=== PATIENT | female | born 1940 | race Caucasian/White ===

== ENCOUNTER 2020-09-27 07:41 | Emergency (ER) | payer OTHER, MEDICAID ==
[~2020-09-27] VITALS: Ht 154.9 cm; Wt 54.4 kg
[2020-09-27 08:15] VITALS: BP_SYST 139
--- NOTE | 2020-09-27 08:15 | NUR ---
Triaged in tent, report given to Dr. Robles and RN
--- NOTE | 2020-09-27 08:32 | NUR ---
ER Dr. Robles at bedside examining patient.
[2020-09-27 08:42] VITALS: BP_SYST 145
--- NOTE | 2020-09-27 08:44 | NUR ---
Pt in chair, in Tent 1. Alert and oriented. Denies pain. Abdomen soft. Son with patient.
--- NOTE | 2020-09-27 08:45 | NUR ---
Patient given written and verbal discharge instructions and verbalizes understanding. ER MD discussed with patient the results and treatment provided. Patient in stable condition. ID arm band removed. Rx of mineral oil enema and melinda oral given. Patient educated on pain management and to follow up with PMD. Pain Scale 0/10. Opportunity for questions provided and answered. Medication side effect fact sheet provided.
[2020-09-27] MEDS ORDERED: FLEETMO RC (08:48)
[2020-09-27] MEDS ORDERED: [UNRECOGNIZED DRUG - OTHER] GT (08:48)
== END 2020-09-27 08:42 | disposition home or self-care (01) ==
LOC: SED 07:41
DX: K59.00 Constipation, unspecified (principal)
CPT/HCPCS: 99283

== ENCOUNTER 2020-10-10 10:25 | Emergency (ER) | payer OTHER, MEDICAID ==
[~2020-10-10] VITALS: Ht 160 cm; Wt 52.2 kg
[~2020-10-10 10:25] MED LIST: FLEETMO RC; [UNRECOGNIZED DRUG - OTHER] GT
[2020-10-10 10:30] VITALS: BP_SYST 106
[2020-10-10] MEDS ORDERED: LORazepam 1 MG TABLET PO ONE (11:00)
[2020-10-10 12:09] VITALS: BP_SYST 106
== END 2020-10-10 12:09 | disposition home or self-care (01) ==
LOC: SED 10:25
DX: F41.9 Anxiety disorder, unspecified (principal); F32.9 Major depressive disorder, single episode, unspecified; K59.00 Constipation, unspecified; R63.0 Anorexia; Z90.710 Acquired absence of both cervix and uterus; Z79.899 Other long term (current) drug therapy; Z86.73 Personal history of transient ischemic attack (TIA), and cerebral infarction without residual deficits
CPT/HCPCS: 99283

== ENCOUNTER 2020-10-26 10:25 | Emergency (ER) | payer MEDICARE, MEDICAID ==
[~2020-10-26] VITALS: Ht 165.1 cm; Wt 47.6 kg
[2020-10-26 10:30] VITALS: BP_SYST 93
--- NOTE | 2020-10-26 10:30 | NUR ---
Patient to ER bed 5 to gown for evaluation. Side rails up.
--- NOTE | 2020-10-26 10:30 | NUR ---
Pt brought to ER by son for diarrhea beginning last night. Pt states she took Amitiza, a laxative, which is prescribed to her for constipation. Pt does not report pain at this time, some mild distress noted, MD david chris
--- NOTE | 2020-10-26 10:52 | NUR ---
ER at bedside examining patient.
--- NOTE | 2020-10-26 10:55 | NUR ---
# 20 gauge angiocath placed to RFA. Use of asceptic technique. Opsite placed over site. Blood return noted. Blood for lab drawn from site. Flushed with 10 cc of normal saline. No evidence of infiltration noted. Patient tolerated well.
[2020-10-26] MEDS ORDERED: NACL 0.9% 1,000 ML IV ONE (11:00)
[2020-10-26] MEDS ORDERED: ONDANSETRON HCL 4 MG/2 ML VIAL IVP ONE (11:00)
[2020-10-26] MEDS ORDERED: LOPERAMIDE HCL 2 MG CAPSULE PO ONE (11:00)
[2020-10-26 11:25] LABS: ANION GAP 9 (5-15); CHLORIDE 89 mmol/L (98-107); CREATININE 1.89 mg/dL (0.55-1.30); GLUCOSE 108 mg/dL (70-99); POTASSIUM 3.4 mmol/L (3.5-5.1); UREA NITROGEN, BLOOD 21 mg/dL (8-21)
[2020-10-26 11:28] LABS: SODIUM SERUM 126 mmol/L (136-145)
[2020-10-26 11:31] LABS: ALANINE AMINOTRANSFERASE 27 U/L (12-78); ALBUMIN 3.4 g/dL (3.4-4.8); ASPARTATE AMINOTRANSFERASE 24 U/L (10-37); LIPASE 226 U/L (73-393); TOTAL BILIRUBIN 0.7 mg/dL (0.0-1.0)
[2020-10-26 11:55] LABS: BASOPHILS # (AUTO) 0.1 K/uL (0.0-0.2); BASOPHILS % (AUTO) 0.7 % (0.0-2.0); EOSINOPHILS # (AUTO) 0.4 K/uL (0.0-0.4); EOSINOPHILS % (AUTO) 5.2 % (0.0-4.0); HEMATOCRIT 35.5 % (36-48); HEMOGLOBIN 12.1 g/dL (12.0-16.0); LYMPHOCYTES # (AUTO) 0.7 K/uL (1.0-5.5); LYMPHOCYTES % (AUTO) 8.8 % (20.5-51.5); MEAN CORPUSCULAR HEMOGLOBIN 30 pg (27-31); MEAN CORPUSCULAR HGB CONC 34 % (32-36); MEAN CORPUSCULAR VOLUME 87 fL (79.0-98.0); MONOCYTES # (AUTO) 0.6 K/uL (0.0-1.0); MONOCYTES % (AUTO) 7.7 % (1.7-9.3); NEUTROPHILS # (AUTO) 6.1 K/uL (1.8-7.7); NEUTROPHILS % (AUTO) 77.6 % (40.0-70.0); PLATELET COUNT (AUTO) 285 K/uL (130-430); RED BLOOD CELL COUNT(AUTO) 4.06 MIL/uL (4.2-6.2); RED CELL DISTRIBUTION WIDTH 13.9 % (9.0-15.0); WHITE BLOOD COUNT (AUTO) 7.9 K/uL (4.8-10.8)
[2020-10-26] MEDS ORDERED: LORazepam 1 MG TABLET ONE (12:24)
[2020-10-26] MEDS ORDERED: LORazepam 1 MG TABLET PO ONE (12:30)
[2020-10-26] MEDS ORDERED: LOPE2CAP PO (12:32)
[2020-10-26] MEDS ORDERED: ONDA4TAB5 PO (12:32)
--- NOTE | 2020-10-26 13:00 | NUR ---
Patient given written and verbal discharge instructions and verbalizes understanding. ER MD discussed with patient the results and treatment provided. Patient in stable condition. ID arm band removed. IV catheter removed intact and dressing applied, no active bleeding. Rx of Immodium and Zofran given. Patient educated on pain management and to follow up with PMD. Pain Scale 0. Opportunity for questions provided and answered. Medication side effect fact sheet provided.
[2020-10-26 13:03] VITALS: BP_SYST 93
== END 2020-10-26 13:02 | disposition home or self-care (01) ==
LOC: SED 10:25
DX: E87.1 Hypo-osmolality and hyponatremia (principal); R19.7 Diarrhea, unspecified; Z79.899 Other long term (current) drug therapy
CPT/HCPCS: 36415; 80053; 83690; 85025; 96361; 96374; 99283; J2405; J7030

== ENCOUNTER 2021-01-15 07:27 | Emergency (ER) | payer MEDICARE, MEDICAID ==
[~2021-01-15] VITALS: Ht 165.1 cm; Wt 45.4 kg
[2021-01-15 07:27] VITALS: BP_SYST 105
[~2021-01-15 07:27] MED LIST changes: +LOPE2CAP PO; +ONDA4TAB5 PO; +PEG4000S4 GT; -[UNRECOGNIZED DRUG - OTHER] GT
--- NOTE | 2021-01-15 07:27 | NUR ---
BROUGHT BACK TO BED #8 AND TRIAGED. REPORT GIVEN TO ASHLEY
--- NOTE | 2021-01-15 07:35 | NUR ---
pt. here with c/o constipation and belly pain. denies N/V. stated had not had a bm for a few days but was able to this morning but now belly pain worse.
--- NOTE | 2021-01-15 07:40 | NUR ---
JEROME Frances at bedside examining patient.
--- NOTE | 2021-01-15 07:50 | NUR ---
HR in 40s, per Dr. Lopez pt placed on pacer pads
--- NOTE | 2021-01-15 08:06 | NUR ---
radiology at bedside for chect xray
--- NOTE | 2021-01-15 08:07 | NUR ---
# 20 gauge angiocath placed to left AC and R FA. Use of asceptic technique. Opsite placed over site. Blood return noted. Blood for lab drawn from AC site. Flushed with 10 cc of normal saline. No evidence of infiltration noted. Patient tolerated well. Dr. Lopez requested 2 IV lines.
[2021-01-15 08:11] LABS: BASOPHILS % (AUTO) 0.4 % (0.0-2.0); EOSINOPHILS # (AUTO) 0.1 K/uL (0.0-0.4); EOSINOPHILS % (AUTO) 0.5 % (0.0-4.0); HEMATOCRIT 30.4 % (36-48); HEMOGLOBIN 10.1 g/dL (12.0-16.0); LYMPHOCYTES # (AUTO) 0.8 K/uL (1.0-5.5); LYMPHOCYTES % (AUTO) 6.7 % (20.5-51.5); MEAN CORPUSCULAR HEMOGLOBIN 31 pg (27-31); MEAN CORPUSCULAR HGB CONC 33 % (32-36); MEAN CORPUSCULAR VOLUME 94 fL (79.0-98.0); MONOCYTES # (AUTO) 0.9 K/uL (0.0-1.0); MONOCYTES % (AUTO) 8.1 % (1.7-9.3); NEUTROPHILS # (AUTO) 9.5 K/uL (1.8-7.7); NEUTROPHILS % (AUTO) 84.3 % (40.0-70.0); PLATELET COUNT (AUTO) 191 K/uL (130-430); RED BLOOD CELL COUNT(AUTO) 3.25 MIL/uL (4.2-6.2); RED CELL DISTRIBUTION WIDTH 14.9 % (9.0-15.0); WHITE BLOOD COUNT (AUTO) 11.3 K/uL (4.8-10.8)
--- NOTE | 2021-01-15 08:13 | NUR ---
Patient transported to radiology via gurney, accompanied by staff.
[2021-01-15 08:26] LABS: ANION GAP 9 (5-15); CALCIUM 8.8 mg/dL (8.4-11.0); CHLORIDE 100 mmol/L (98-107); CREATININE 1.53 mg/dL (0.55-1.30); GLUCOSE 100 mg/dL (70-99); SODIUM SERUM 135 mmol/L (136-145); UREA NITROGEN, BLOOD 22 mg/dL (8-21)
--- NOTE | 2021-01-15 08:30 | NUR ---
RETURNED FROM RADIOLOGY, PLACED BACK IN BED
[2021-01-15 08:40] LABS: ALANINE AMINOTRANSFERASE 216 U/L (12-78); ALBUMIN 3.2 g/dL (3.4-4.8); ASPARTATE AMINOTRANSFERASE 137 U/L (10-37); BILIRUBIN,DIRECT 0.3 mg/dL (0.0-0.3); FREE T4 (FREE THYROXINE) 1.4 ng/dl (0.8-1.5); LIPASE 87 U/L (73-393); THYROID STIMULATING HORMONE 10.82 uIu/mL (0.36-3.74); TOTAL BILIRUBIN 0.8 mg/dL (0.0-1.0)
--- NOTE | 2021-01-15 08:44 | NUR ---
Patient transported to radiology via wheelchair, accompanied by staff.
--- NOTE | 2021-01-15 10:29 | NUR ---
radiology at bedside for abd U/S
[2021-01-15] MEDS ORDERED: POLY17PO4 PO (12:09)
[2021-01-15 12:29] VITALS: BP_SYST 127
--- NOTE | 2021-01-15 12:32 | NUR ---
Patient and patients son given written and verbal discharge instructions and verbalizes understanding. Dr. Lopez discussed with patient the results and treatment provided. Patient in stable condition. ID arm band removed. IV catheters removed intact and dressing applied, no active bleeding. Patient educated on pain management and to follow up with PMD. Pain Scale 0. Opportunity for questions provided and answered. Medication side effect fact sheet provided.
== END 2021-01-15 12:32 | disposition home or self-care (01) ==
LOC: SED 07:27
DX: K59.00 Constipation, unspecified (principal); R10.84 Generalized abdominal pain; R00.0 Tachycardia, unspecified; E07.9 Disorder of thyroid, unspecified; R74.01 Elevation of levels of liver transaminase levels; Z79.899 Other long term (current) drug therapy
CPT/HCPCS: 36415; 70450; 71045; 74177; 76376; 76700; 76856; 80048; 80076; 82962; 83690; 83880; 84439; 84443; 84484; 85025; 93005; 99285; Q9967; 74160-TC

== ENCOUNTER 2021-04-16 02:27 | Emergency (ER) | payer OTHER, MEDICAID ==
[~2021-04-16] VITALS: Ht 165.1 cm; Wt 44.5 kg
[~2021-04-16 02:27] MED LIST changes: +POLY17PO4 PO
[2021-04-16 02:28] VITALS: BP_SYST 180
[2021-04-16] MEDS ORDERED: ACETAMINOPHEN 500 MG TABLET PO ONE (03:00)
[2021-04-16 03:33] LABS: BASOPHILS % (AUTO) 0.6 % (0.0-2.0); EOSINOPHILS # (AUTO) 0.5 K/uL (0.0-0.4); EOSINOPHILS % (AUTO) 5.5 % (0.0-4.0); HEMOGLOBIN 9.8 g/dL (12.0-16.0); LYMPHOCYTES % (AUTO) 11.7 % (20.5-51.5); MEAN CORPUSCULAR HEMOGLOBIN 31 pg (27-31); MEAN CORPUSCULAR HGB CONC 34 % (32-36); MEAN CORPUSCULAR VOLUME 93 fL (79.0-98.0); MONOCYTES # (AUTO) 0.8 K/uL (0.0-1.0); MONOCYTES % (AUTO) 9.6 % (1.7-9.3); NEUTROPHILS # (AUTO) 6.3 K/uL (1.8-7.7); NEUTROPHILS % (AUTO) 72.6 % (40.0-70.0); PLATELET COUNT (AUTO) 266 K/uL (130-430); RED BLOOD CELL COUNT(AUTO) 3.14 MIL/uL (4.2-6.2); RED CELL DISTRIBUTION WIDTH 15.6 % (9.0-15.0); WHITE BLOOD COUNT (AUTO) 8.6 K/uL (4.8-10.8)
[2021-04-16 03:36] LABS: ANION GAP 4 (5-15); CALCIUM 8.4 mg/dL (8.4-11.0); CHLORIDE 104 mmol/L (98-107); CREATININE 1.54 mg/dL (0.55-1.30); GLUCOSE 103 mg/dL (70-99); POTASSIUM 4.1 mmol/L (3.5-5.1); SODIUM SERUM 140 mmol/L (136-145); UREA NITROGEN, BLOOD 28 mg/dL (8-21)
[2021-04-16 03:41] LABS: ALANINE AMINOTRANSFERASE 94 U/L (12-78); ALBUMIN 2.9 g/dL (3.4-4.8); ASPARTATE AMINOTRANSFERASE 60 U/L (10-37); TOTAL BILIRUBIN 0.4 mg/dL (0.0-1.0)
[2021-04-16 03:50] LABS: C-REACTIVE PROTEIN QUANT 1.1 mg/dL (0-0.5)
[2021-04-16 04:13] LABS: ERYTHROCYTE SEDIMENTATION RATE 27 MM/HR (0-20)
[2021-04-16] MEDS ORDERED: ACET-2634 PO (08:27)
[2021-04-16 08:51] VITALS: BP_SYST 146
== END 2021-04-16 08:51 | disposition home or self-care (01) ==
LOC: SED 02:27
DX: M25.551 Pain in right hip (principal); Z79.899 Other long term (current) drug therapy
CPT/HCPCS: 36415; 72170-TC; 72192-TC; 73502; 76376; 80053; 85025; 85651-TC; 86140; 99285

== ENCOUNTER 2023-01-10 10:40 | Emergency (ER) | payer OTHER, MEDICAID ==
[~2023-01-10] VITALS: Ht 162.6 cm; Wt 56.2 kg
[~2023-01-10 10:40] MED LIST changes: +ACET-2634 PO
[2023-01-10 10:50] VITALS: BP_SYST 165
[2023-01-10] MEDS ORDERED: MORPHINE 4 MG INJ. 4 MG/ML VIAL IM ONE (11:15)
[2023-01-10 11:39] LABS: BILIRUBIN,URINE NEGATIVE (NEGATIVE); CLARITY/URINE CLEAR (CLEAR); COLOR,URINE YELLOW (YELLOW); GLUCOSE,URINE NEGATIVE (NEGATIVE); KETONES,URINE NEGATIVE (NEGATIVE); LEUKOCYTE ESTERASE ,URINE NEGATIVE (NEGATIVE); NITRITE, URINE NEGATIVE (NEGATIVE); PROTEIN URINE NEGATIVE (NEGATIVE); UROBILINOGEN,URINE 0.2 (0.2-1.0)
[2023-01-10 11:42] LABS: BLOOD, URINE TRACE (NEGATIVE)
[2023-01-10] MEDS ORDERED: HYDR-3917 PO (11:48)
[2023-01-10] MEDS ORDERED: IBUP-1969 PO (11:48)
[2023-01-10 11:58] VITALS: BP_SYST 165
[2023-01-10 12:06] LABS: BACTERIA,URINE RARE /HPF (None Seen); WBC,URINE 0-3 /HPF (0-3)
== END 2023-01-10 11:59 | disposition home or self-care (01) ==
LOC: SED 10:40
DX: M54.50 Low back pain, unspecified (principal); R19.7 Diarrhea, unspecified; I10 Essential (primary) hypertension; Z79.899 Other long term (current) drug therapy
CPT/HCPCS: 99283; 81000; 96372; J2270

== ENCOUNTER 2023-09-04 14:27 | Emergency (ER) | payer OTHER, MEDICAID ==
[~2023-09-04] VITALS: Ht 162.6 cm; Wt 54.4 kg
[~2023-09-04 14:27] MED LIST changes: +HYDR-3917 PO; +IBUP-1969 PO
[2023-09-04 14:42] VITALS: BP_SYST 194; PULSE 106; RESP 22; TEMP 96.9; O2SAT 100
[2023-09-04] MEDS ORDERED: IPRATROPIUM/ALBUTEROL SULFATE 3 ML AMPUL.NEB (DUONEB) INH ONE (15:00)
[2023-09-04 15:42] LABS: ANION GAP 8 (5-15); CALCIUM 10.2 mg/dL (8.4-11.0); CARBON DIOXIDE 30 mmol/L (23-29); CHLORIDE 101 mmol/L (98-107); CREATININE 1.09 mg/dL (0.55-1.30); GLUCOSE 103 mg/dL (74-106); POTASSIUM 4.5 mmol/L (3.5-5.1); SODIUM SERUM 139 mmol/L (136-145); UREA NITROGEN, BLOOD 20 mg/dL (8-21)
[2023-09-04 15:44] LABS: BASOPHILS % (AUTO) 0.5 % (0.0-2.0); EOSINOPHILS # (AUTO) 0.1 K/uL (0.0-0.4); EOSINOPHILS % (AUTO) 1.2 % (0.0-4.0); HEMATOCRIT 41.8 % (36-48); HEMOGLOBIN 13.8 g/dL (12.0-16.0); LYMPHOCYTES # (AUTO) 1.4 K/uL (1.0-5.5); LYMPHOCYTES % (AUTO) 18.8 % (20.5-51.5); MEAN CORPUSCULAR HEMOGLOBIN 30 pg (27-31); MEAN CORPUSCULAR HGB CONC 33 % (32-36); MEAN CORPUSCULAR VOLUME 90 fL (79.0-98.0); MONOCYTES # (AUTO) 0.6 K/uL (0.0-1.0); MONOCYTES % (AUTO) 7.3 % (1.7-9.3); NEUTROPHILS # (AUTO) 5.5 K/uL (1.8-7.7); NEUTROPHILS % (AUTO) 72.2 % (40.0-70.0); PLATELET COUNT (AUTO) 212 K/uL (130-430); RED BLOOD CELL COUNT(AUTO) 4.63 MIL/uL (4.2-6.2); RED CELL DISTRIBUTION WIDTH 13.6 % (9.0-15.0); WHITE BLOOD COUNT (AUTO) 7.6 K/uL (4.8-10.8)
[2023-09-04 15:49] LABS: ALANINE AMINOTRANSFERASE 23 U/L (12-78); ALBUMIN 3.8 g/dL (3.4-4.8); ASPARTATE AMINOTRANSFERASE 19 U/L (10-37); TOTAL BILIRUBIN 0.4 mg/dL (0.0-1.0); TOTAL PROTEIN, SERUM 7.1 g/dL (6.4-8.3)
[2023-09-04 16:18] LABS: INR 1.2 (0.8-1.2); PROTHROMBIN TIME 12.6 SECS (9.5-12.5)
[2023-09-04 16:30] LABS: INFLUENZA TYPE A Negative (NEGATIVE); INFLUENZA TYPE B NEGATIVE (NEGATIVE)
[2023-09-04] MEDS ORDERED: FUROSEMIDE 40 MG/4 ML VIAL IVP ONE (16:45)
[2023-09-04] MEDS ORDERED: ALBMDI INH (18:45)
[2023-09-04 18:53] VITALS: BP_SYST 161; PULSE 106; RESP 22; TEMP 96.9; O2SAT 96
== END 2023-09-04 18:53 | disposition home or self-care (01) ==
LOC: SED 14:27
DX: R06.00 Dyspnea, unspecified (principal); F41.9 Anxiety disorder, unspecified; I11.0 Hypertensive heart disease with heart failure; I50.9 Heart failure, unspecified; Z79.899 Other long term (current) drug therapy; Z20.822 Contact with and (suspected) exposure to COVID-19
CPT/HCPCS: 99285; 96374; 71045; 87426; 80053; 83880; 85025; 85610; 85730; 84484; 36415; 93005; 94640; 87804 ×2; J1940

== ENCOUNTER 2024-02-18 08:44 | Emergency (ER) | payer OTHER, MEDICAID ==
[~2024-02-18] VITALS: Ht 162.6 cm; Wt 52.2 kg
[~2024-02-18 08:44] MED LIST changes: +ALBMDI INH; +MAGN296S70 PO
[2024-02-18 09:04] VITALS: BP_SYST 191; PULSE 79; RESP 16; TEMP 97.7; O2SAT 96
[2024-02-18] MEDS: KETOROLAC TROMETHAMINE 30 MG VIAL IM ONE (09:49)
[2024-02-18] MEDS ORDERED: PEG4000S4 PO (10:04)
[2024-02-18] MEDS ORDERED: FLEETMO RC (10:04)
[2024-02-18 10:30] VITALS: BP_SYST 171; PULSE 67; RESP 16; TEMP 97.7; O2SAT 96
== END 2024-02-18 10:32 | disposition home or self-care (01) ==
LOC: SED 08:44
DX: K59.00 Constipation, unspecified (principal); I10 Essential (primary) hypertension; F41.9 Anxiety disorder, unspecified; Z90.49 Acquired absence of other specified parts of digestive tract; Z90.710 Acquired absence of both cervix and uterus; Z79.899 Other long term (current) drug therapy; Z79.2 Long term (current) use of antibiotics
CPT/HCPCS: 74018; 99283; J1885

== ENCOUNTER 2024-04-30 10:08 | Emergency (ER) | payer OTHER, MEDICAID ==
[~2024-04-30] VITALS: Ht 162.6 cm; Wt 54.4 kg
[~2024-04-30 10:08] MED LIST changes: +PEG4000S4 PO
[2024-04-30 10:10] VITALS: BP_SYST 211; PULSE 72; RESP 20; TEMP 97.1; O2SAT 98
[2024-04-30] MEDS ORDERED: EZET10TA30 PO (10:52)
[2024-04-30] MEDS ORDERED: RIVA10TA PO (10:52)
[2024-04-30] MEDS ORDERED: FLUT16SP16 NS (10:52)
[2024-04-30] MEDS ORDERED: VALS80TA31 PO (10:52)
[2024-04-30] MEDS ORDERED: ASPI-1393 PO (10:52)
[2024-04-30] MEDS ORDERED: PANT20TA16 PO (10:52)
[2024-04-30] MEDS ORDERED: ESCI5TAB16 PO (10:52)
[2024-04-30] MEDS ORDERED: FURO20TA4 PO (10:52)
[2024-04-30] MEDS ORDERED: PROP150T2 PO (10:52)
[2024-04-30] MEDS ORDERED: LORA10TA7 PO (10:52)
[2024-04-30 10:55] LABS: BASOPHILS # (AUTO) 0.1 K/uL (0.0-0.2); BASOPHILS % (AUTO) 1.3 % (0.0-2.0); EOSINOPHILS % (AUTO) 1.2 % (0.0-4.0); HEMATOCRIT 38.1 % (36-48); HEMOGLOBIN 12.8 g/dL (12.0-16.0); LYMPHOCYTES # (AUTO) 1.3 K/uL (1.0-5.5); LYMPHOCYTES % (AUTO) 33.1 % (20.5-51.5); MEAN CORPUSCULAR HEMOGLOBIN 31 pg (27-31); MEAN CORPUSCULAR HGB CONC 34 % (32-36); MEAN CORPUSCULAR VOLUME 92 fL (79.0-98.0); MONOCYTES # (AUTO) 0.4 K/uL (0.0-1.0); MONOCYTES % (AUTO) 11.3 % (1.7-9.3); NEUTROPHILS # (AUTO) 2.1 K/uL (1.8-7.7); NEUTROPHILS % (AUTO) 53.1 % (40.0-70.0); PLATELET COUNT (AUTO) 214 K/uL (130-430); RED BLOOD CELL COUNT(AUTO) 4.16 MIL/uL (4.2-6.2); RED CELL DISTRIBUTION WIDTH 13.3 % (9.0-15.0); WHITE BLOOD COUNT (AUTO) 3.9 K/uL (4.8-10.8)
[2024-04-30 11:03] LABS: INR 1.3 (0.8-1.2); PROTHROMBIN TIME 13.7 SECS (9.5-12.5)
[2024-04-30 11:16] LABS: ALANINE AMINOTRANSFERASE 26 U/L (12-78); ALBUMIN 3.9 g/dL (3.4-4.8); AMYLASE 39 U/L (0-100); ANION GAP 8 (5-15); ASPARTATE AMINOTRANSFERASE 32 U/L (10-37); BILIRUBIN,DIRECT 0.2 mg/dL (0.0-0.3); CALCIUM 9.5 mg/dL (8.4-11.0); CARBON DIOXIDE 28 mmol/L (23-29); CHLORIDE 97 mmol/L (98-107); CREATININE 1.19 mg/dL (0.55-1.30); GLUCOSE 102 mg/dL (74-106); LIPASE 47 U/L (16-77); POTASSIUM 4.2 mmol/L (3.5-5.1); SODIUM SERUM 133 mmol/L (136-145); TOTAL BILIRUBIN 0.4 mg/dL (0.0-1.0); TOTAL PROTEIN, SERUM 6.7 g/dL (6.4-8.3); UREA NITROGEN, BLOOD 14 mg/dL (8-21)
[2024-04-30] MEDS ORDERED: DOCU-144 PO (12:43)
[2024-04-30 12:53] VITALS: BP_SYST 148; PULSE 83; RESP 20; TEMP 97.1; O2SAT 98
== END 2024-04-30 12:48 | disposition home or self-care (01) ==
LOC: SED 10:08
DX: K59.00 Constipation, unspecified (principal); I11.0 Hypertensive heart disease with heart failure; I50.9 Heart failure, unspecified; I25.2 Old myocardial infarction; F41.9 Anxiety disorder, unspecified; Z79.899 Other long term (current) drug therapy; Z79.2 Long term (current) use of antibiotics; Z79.82 Long term (current) use of aspirin
CPT/HCPCS: 36415; 80048; 80076; 82150; 83605; 83690; 85025; 85610; 85730; 99284